=== PATIENT | female | born 1960 | race Caucasian/White ===

== ENCOUNTER 2017-01-16 07:35 | Day surgery (SDC) | payer OTHER ==
[2017-01-15 10:32] VITALS: BMI 34.6
[2017-01-16] VITALS (16 sets, daily range): BP systolic 101–131; BP diastolic 58–74; PULSE 55–84; RESP 12–21; Ht 154.9 cm; Wt 80.3 kg
[~2017-01-16] VITALS: Ht 154.9 cm; Wt 80.3 kg
[~2017-01-16 07:35] MED LIST: SUCCINYLCHOLINE CHLORIDE 100 MG/5 ML SYG IV ONE
[2017-01-16] MEDS ORDERED: CEFAZOLIN 2 GM/50 ML (PMX) 50 ML IVPB ONE (08:00)
[2017-01-16] MEDS ORDERED: SOD CHLORIDE 0.9% 1,000 ML IV SCH (08:00)
[2017-01-16] MEDS ORDERED: MTF1000T PO (08:26)
[2017-01-16] MEDS ORDERED: ATOR10TA65 PO (08:26)
[2017-01-16] MEDS ORDERED: ERGO500037 PO (08:33)
[2017-01-16] MEDS ORDERED: MELO-109 PO (08:33)
--- NOTE | 2017-01-16 09:07 | RADRPT ---
PROCEDURE: Chest Radiograph. CLINICAL INDICATION: Preop TECHNIQUE: Single frontal chest radiograph. COMPARISON: None available FINDINGS: The cardiomediastinal silhouette is within normal limits. No infiltrate or effusion is seen. Th e bones are intact. IMPRESSION: 1. Unremarkable chest radiograph. RPTAT: KK .Lobo Payne MD, MD Date Time Electronically viewed and signed by .Lobo Payne MD, on 01/16/2017 09:06 .B/
[2017-01-16 09:25] LABS: BASOPHILS % 0.5 % (0.0-2.0); EOSINOPHILS # 0.3 10^3/ul (0.0-0.5); EOSINOPHILS % 3.5 % (0.0-7.0); HEMATOCRIT 38.1 % (37.0-47.0); HEMOGLOBIN 12.9 g/dl (12.0-16.0); LYMPHOCYTES # 2.3 10^3/ul (0.8-2.9); LYMPHOCYTES % 30.9 % (15.0-51.0); MEAN CORPUSCULAR HEMOGLOBIN 32.2 pg (29.0-33.0); MEAN CORPUSCULAR HGB CONC 33.9 g/dl (32.0-37.0); MEAN PLATELET VOLUME 9.9 fl (7.4-10.4); MONOCYTE # 0.5 10^3/ul (0.3-0.9); MONOCYTES % 7.3 % (0.0-11.0); NEUTROPHIL # 4.3 10^3/ul (1.6-7.5); NEUTROPHILS % 57.5 % (39.0-77.0); PLATELET COUNT 267 10^3/UL (140-415); RED BLOOD COUNT 4.01 10^6/ul (4.20-5.40); RED CELL DISTRIBUTION WIDTH 12.5 % (11.5-14.5); WHITE BLOOD COUNT 7.4 10^3/ul (4.8-10.8)
[2017-01-16 09:37] LABS: ADD SCAN DIFF NO
[2017-01-16 09:39] LABS: ALBUMIN/GLOBULIN RATIO 1.51; BILIRUBIN,INDIRECT 0.2 mg/dl (0-1.1); BILIRUBIN,TOTAL 0.2 mg/dl (0.2-1.3); INR 0.87; PROTIME 11.8 Sec (12.2-14.2); PT RATIO 0.9; TOTAL PROTEIN 8.3 g/dl (6.1-8.1)
[2017-01-16 09:40] LABS: PARTIAL THROMBOPLASTIN TIME 29.8 Sec (25.0-35.0)
[2017-01-16 09:46] LABS: CALCIUM 9.3 mg/dl (8.4-10.2); CREATININE 0.66 mg/dl (0.44-1.00); POTASSIUM 4.7 mmol/L (3.5-5.1)
[2017-01-16] MEDS ORDERED: ROCURONIUM 50 MG INJ ONE (10:41)
[2017-01-16] MEDS ORDERED: CEFAZOLIN 1 GM INJ ONE (10:41)
[2017-01-16] MEDS ORDERED: PROPOFOL 20 ML ONE (10:41)
[2017-01-16] MEDS ORDERED: NEOSTIGMINE 3 MG/3 ML SYRINGE ONE (10:41)
[2017-01-16] MEDS ORDERED: GLYCOPYRROLATE 0.4 MG INJ ONE (10:41)
[2017-01-16] MEDS ORDERED: ONDANSETRON 4 MG INJ ONE (10:42)
[2017-01-16] MEDS ORDERED: MIDAZOLAM 1 MG/ML 2 ML INJ ONE (10:42)
[2017-01-16] MEDS ORDERED: DEXAMETHASONE 4 MG/ML 1 ML INJ ONE (10:42)
[2017-01-16] MEDS ORDERED: FENTAnyl 50 MCG/ML VIAL ONE (10:42)
[2017-01-16] MEDS ORDERED: BUPIVACAINE 0.25%/EPI (SDV) 30 ML INJ INJ ONE (11:16)
--- NOTE | 2017-01-19 20:56 | RADRPT ---
Vent Rate: 48 bpm RR Interval: 0 msec ME Interval: 134 msec QRS Duration: 82 msec QT Interval: 494 msec QTC Interval: 441 msec P-R-T Galva: 54 - 64 - 32 degrees Marked sinus bradycardia Cannot rule out Anterior infarct , age undetermined Abnormal ECG Electronically Signed By: Derrek Ortiz [id number]
== END 2017-01-16 13:22 | disposition home or self-care (01) ==
LOC: SDS 07:35
PROVIDERS: ATTEND Surgery Surgical Oncology
DX: D17.24 Benign lipomatous neoplasm of skin and subcutaneous tissue of left leg (principal); E11.9 Type 2 diabetes mellitus without complications
CPT/HCPCS: 14020; 71010; 80053; 82962; 85025; 85610; 85730; 88307; 93005; J0690; J1100; J2250; J2405; J3010; J7999; Z7512; Z7610; J2710

== ENCOUNTER 2017-01-30 09:47 | Emergency (ER) | payer OTHER ==
[~2017-01-30] VITALS: Ht 157.5 cm; Wt 81.5 kg
[~2017-01-30 09:47] MED LIST changes: +ATOR10TA65 PO; +ERGO500037 PO; +MELO-109 PO; +MTF1000T PO; -SUCCINYLCHOLINE CHLORIDE 100 MG/5 ML SYG IV ONE
[2017-01-30 09:49] VITALS: Ht 157.5 cm; Wt 81.5 kg
--- NOTE | 2017-01-30 10:31 | ERD ---
ER Documentation Chief Complaint Date/Time DATE: 01/30/17 TIME: 10:28 Chief Complaint surgical incision opened on left inner thigh x yesterday HPI This is a 56-year-old female who presents to the emergency room for evaluation of postop surgical wound. The patient did have surgery on her left thigh for removal of the lipoma on January 16. She did have it done by Dr. Burkett. The patient was supposed to follow-up with Dr. Mcduffie on February 03. The patient states that last night her wound opened up. She denies any active bleeding from the site and came to the ER for evaluation ROS All systems reviewed and are negative except as per history of present illness. Medications Home Meds Reported Medications Ergocalciferol (Vitamin D2) (VITAMIN D2) 50,000 Unit Capsule, [address] UNIT PO THURSDAY, CAP 01/16/17 Meloxicam* (Meloxicam*) 7.5 Mg Tablet, 7.5 MG PO DAILY, #30 TAB 01/16/17 Atorvastatin Calcium (Atorvastatin Calcium) 10 Mg Tablet, 10 MG PO QHS, #30 TAB 01/16/17 Metformin* (Glucophage*) 1,000 Mg Tablet, 1000 MG PO BID, #60 TAB 01/16/17 Allergies Allergies: Coded Allergies: No Known Allergy (Unverified , 01/30/17) PMhx/Soc History of Surgery: Yes (LAP LARRY, C-SEC X2, L thigh cyst) Anesthesia Reaction: No Hx Neurological Disorder: No Hx Respiratory Disorders: No Hx Cardiac Disorders: No Hx Psychiatric Problems: No Hx Miscellaneous Medical Probl: No Hx Alcohol Use: No Hx Substance Use: No Hx Tobacco Use: No Smoking Status: Never smoker Physical Exam Vitals Vital Signs Date Time Temp Pulse Resp B/P Pulse Ox O2 Delivery O2 Flow Rate FiO2 01/30/17 09:49 98.1 54 16 124/59 96 Physical Exam INITIAL VITAL SIGNS: Reviewed by me GENERAL: The patient is well developed and appropriate for usual state of health in no apparent distress HEENT: Pupils equal, round, and reactive to light. EOMI. There is no scleral icterus. NECK: C-spine is soft and supple, there is no meningismus. There is no cervical lymphadenopathy. LUNGS: Clear to auscultation bilaterally. There are no rales, wheezes or rhonchi. HEART: Regular rate and rhythm, no murmurs, clicks, rubs or gallops. ABDOMEN: Soft, non-tender, non-distended. There are bowel sounds in all four quadrants. No rebound or guarding. EXTREMITIES: There is no peripheral cyanosis or edema. No focal swelling or erythema. NEUROLOGICAL: The patient moves all four extremities with 5/5 strength. Cranial nerves II - XII are intact. Normal gait. Alert and oriented SKIN: Left medial thigh incision site is dehisced, there are [address], no active bleeding or purulent discharge. There is no apparent rash or petechiae. HEME/LYMPHATIC: There is no evidence of excessive bruising or lymphedema. PSYCHIATRIC: The patient does not appear anxious or depressed. Procedures/MDM Suture Removal by me: Sutures removed with tweezers and scissors without incident. Wound shows no evidence of infection, foreign body, neurologic injury, vascular injury, open joint or tendon laceration. Patient to follow up PRN. This 56-year-old female presents to the emergency room for evaluation of a dehisced wound. The patient did have a lipoma removal from her left upper thigh by Dr. Mcduffie on January 16. The pathology reports are normal. The patient presents for dehiscence. I evaluated the patient's wound and it was dehisced there is no active discharge or bleeding. The patient did have sutures removed without difficulty. I have contacted Dr. Bowman who is okay with the plan of discharge with follow-up in 4 days in his office. I have relayed this information to the patient who verbalizes understanding. Departure Diagnosis: Primary Impression: Wound dehiscence Additional Impression: Visit for suture removal Condition: Stable AYANA ZIMMERMAN DO Jan 30, 2017 10:31
== END 2017-01-30 10:40 | disposition home or self-care (01) ==
LOC: FTE 09:47
DX: T81.31XA Disruption of external operation (surgical) wound, not elsewhere classified, initial encounter (principal); Y82.8 Other medical devices associated with adverse incidents; Z48.02 Encounter for removal of sutures; Z79.84 Long term (current) use of oral hypoglycemic drugs
CPT/HCPCS: 99281